=== PATIENT | female | born 1955 | race Caucasian/White ===

== ENCOUNTER 2019-10-19 10:45 | Outpatient (CLI) | payer MEDICARE, MEDICAID, SELFPAY ==
[2019-10-19 11:16] LABS: Alanine Aminotransferase 21 U/L (4-35); Alkaline Phosphatase 76 U/L (38-126); Aspartate Amino Transferase 26 U/L (14-36); Bilirubin,Total 0.3 mg/dL (0.2-1.3); Blood Urea Nitrogen 29 mg/dL (7-17); Calcium 9.2 mg/dL (8.4-10.2); Carbon Dioxide 30 mmol/L (22-30); Chloride 107 mmol/L (98-107); Cholesterol 111 mg/dL (0-200); Estimated Glomerular Filt Rate > 60; Glucose 105 mg/dL (65-105); HDL Direct 48 mg/dL; Potassium 3.8 mmol/L (3.4-5.0); Sodium 141 mmol/L (137-145); Triglycerides 94 mg/dL (<150)
[2019-10-19 11:19] LABS: Hemoglobin A1C 6.3 % (<5.7)
[2019-10-19 11:27] LABS: LDL Cholesterol Direct 40 mg/dL
[2019-10-19 11:49] LABS: Vitamin D 25 Hydroxy 60.1 ng/mL
== END 2019-10-19 10:46 | disposition home or self-care (01) ==
PROVIDERS: PCP Internal Medicine; Visit Provider Nurse Practitioner
DX: E55.9 Vitamin D deficiency, unspecified (principal); E11.51 Type 2 diabetes mellitus with diabetic peripheral angiopathy without gangrene; E78.2 Mixed hyperlipidemia
CPT/HCPCS: 36415; 80053; 80061; 82306; 83036

== ENCOUNTER 2020-03-30 13:12 | Outpatient (CLI) | payer MEDICARE, MEDICAID, SELFPAY ==
[2020-03-30 13:51] LABS: Hemoglobin A1C 5.6 % (<5.7)
[2020-03-30 13:58] LABS: Alanine Aminotransferase 16 U/L (4-35); Albumin Level 4.4 g/dL (3.5-5.1); Alkaline Phosphatase 64 U/L (38-126); Anion Gap 6 mmol/L (8-16); Aspartate Amino Transferase 24 U/L (14-36); Bilirubin,Total 0.4 mg/dL (0.2-1.3); Blood Urea Nitrogen 22 mg/dL (7-17); Calcium 9.7 mg/dL (8.4-10.2); Carbon Dioxide 28 mmol/L (22-30); Chloride 101 mmol/L (98-107); Cholesterol 134 mg/dL (0-200); Estimated Glomerular Filt Rate 56; Glucose 129 mg/dL (65-105); HDL Direct 46 mg/dL; Potassium 4.1 mmol/L (3.4-5.0); Sodium 135 mmol/L (137-145); Triglycerides 209 mg/dL (<150)
[2020-03-30 14:09] LABS: LDL Cholesterol Direct 43 mg/dL
[2020-03-30 14:41] LABS: Vitamin D 25 Hydroxy 69.7 ng/mL
== END 2020-03-30 13:13 | disposition home or self-care (01) ==
LOC: ANHLAB 13:17
PROVIDERS: PCP Internal Medicine; Visit Provider Internal Medicine
DX: E78.5 Hyperlipidemia, unspecified (principal); E11.51 Type 2 diabetes mellitus with diabetic peripheral angiopathy without gangrene; E55.9 Vitamin D deficiency, unspecified
CPT/HCPCS: 36415; 80053; 80061; 82306; 83036

== ENCOUNTER 2020-10-03 11:40 | Outpatient (CLI) | payer MEDICARE, MEDICAID, SELFPAY ==
--- NOTE | 2020-10-03 12:32 | ECG_ITS ---
Measurements Intervals [place] Rate: 97 P: [place]: 0 QRS: -19 QRSD: 94 T: 70 QT: 353 QTc: 449 Interpretive Statements ATRIAL FIBRILLATION DELAYED PRECORDIAL R/S TRANSITION NONSPECIFIC ST & T-WAVE ABNORMALITY- HIGH LATERAL LEADS BASELINE ARTIFACT- I, II, III, AVR, AVL, AVF ABNORMAL ECG Electronically Signed On 10-03-2020 13:17:03 CDT by Xavi Carter D.O.
[2020-10-03 12:34] LABS: Potassium 3.9 mmol/L (3.4-5.0)
[2020-10-03 12:37] LABS: Alanine Aminotransferase 18 U/L (4-35); Albumin Level 4.5 g/dL (3.5-5.1); Alkaline Phosphatase 105 U/L (38-126); Anion Gap 6 mmol/L (8-16); Aspartate Amino Transferase 30 U/L (14-36); Bilirubin,Total 0.3 mg/dL (0.2-1.3); Blood Urea Nitrogen 22 mg/dL (7-17); Calcium 9.3 mg/dL (8.4-10.2); Carbon Dioxide 31 mmol/L (22-30); Chloride 99 mmol/L (98-107); Cholesterol 139 mg/dL (0-200); Estimated Glomerular Filt Rate 50; Glucose 131 mg/dL (65-105); HDL Direct 68 mg/dL; Sodium 136 mmol/L (137-145); Triglycerides 226 mg/dL (<150)
[2020-10-03 12:38] LABS: Hemoglobin A1C 6.3 % (<5.7)
[2020-10-03 12:45] LABS: LDL Cholesterol Direct 36 mg/dL
[2020-10-03 12:56] LABS: Creatinine Urine 21.7 mg/dL
[2020-10-03 13:02] LABS: Microalbumin Urine Random 6.3 mg/L (0-16.7)
[2020-10-03 14:57] LABS: Vitamin D 25 Hydroxy 46.6 ng/mL
== END 2020-10-03 11:41 | disposition home or self-care (01) ==
LOC: ANHLAB 11:45
PROVIDERS: PCP Internal Medicine; Visit Provider Nurse Practitioner
DX: I49.9 Cardiac arrhythmia, unspecified (principal); E11.51 Type 2 diabetes mellitus with diabetic peripheral angiopathy without gangrene; F32.9 Major depressive disorder, single episode, unspecified; E78.2 Mixed hyperlipidemia; E55.9 Vitamin D deficiency, unspecified
CPT/HCPCS: 36415; 80053; 80061; 82043; 82306; 83036; 84443; 93005

== ENCOUNTER 2021-04-14 10:37 | Outpatient (CLI) | payer MEDICARE, MEDICAID, SELFPAY ==
[2021-04-14 11:12] LABS: Hemoglobin A1C 6.4 % (<5.7)
[2021-04-14 11:19] LABS: Alanine Aminotransferase 17 U/L (4-35); Albumin Level 4.3 g/dL (3.5-5.1); Alkaline Phosphatase 87 U/L (38-126); Anion Gap 9 mmol/L (8-16); Aspartate Amino Transferase 24 U/L (14-36); Bilirubin,Total 0.4 mg/dL (0.2-1.3); Blood Urea Nitrogen 36 mg/dL (7-17); Calcium 9.5 mg/dL (8.4-10.2); Carbon Dioxide 27 mmol/L (22-30); Chloride 104 mmol/L (98-107); Cholesterol 122 mg/dL (0-200); Estimated Glomerular Filt Rate 38; Glucose 173 mg/dL (65-110); HDL Direct 49 mg/dL; Potassium 3.7 mmol/L (3.4-5.0); Sodium 140 mmol/L (137-145); Triglycerides 260 mg/dL (<150)
[2021-04-14 11:41] LABS: LDL Cholesterol Direct < 30 mg/dL
== END 2021-04-14 10:38 | disposition home or self-care (01) ==
LOC: ANHLAB 10:43
PROVIDERS: PCP Internal Medicine; Visit Provider Nurse Practitioner
DX: E78.5 Hyperlipidemia, unspecified (principal); E11.9 Type 2 diabetes mellitus without complications
CPT/HCPCS: 36415; 80053; 80061; 83036

== ENCOUNTER 2021-08-20 16:42 | Outpatient (CLI) | payer OTHER, SELFPAY ==
[2021-08-20 17:35] LABS: Basophils Absolute Auto 0.1 K/mm3 (0.0-0.1); Basophils Percent Auto 0.7 % (0.2-1.2); Eosinophils Absolute Auto 0.2 K/mm3 (0-0.3); Hematocrit 45.7 % (37.0-47.0); Hemoglobin 15.4 g/dL (12.0-15.0); Immature Granulocyte Absolute 0.03 K/mm3 (0.00-0.031); Immature Granulocyte Percent A 0.3 % (0-0.5); Lymphocytes Absolute Auto 2.83 K/mm3 (0.9-3.2); Lymphocytes Percent Auto 26.7 % (18.3-44.2); Mean Corpuscular HGB Conc 33.7 g/dl (32-36); Mean Corpuscular Hemoglobin 34.2 pg (26-34); Mean Corpuscular Volume 101.6 fl (80-100); Mean Platelet Volume 10.4 fl (7.4-10.4); Monocytes Absolute Auto 0.7 K/mm3 (0.1-0.6); Monocytes Percent Auto 6.8 % (2.6-8.5); Neutrophils Absolute Auto 6.7 K/mm3 (1.3-6.7); Neutrophils Percent Auto 63.5 % (45.5-73.1); Platelet Count Result 192 k/mm3 (150-375); Red Cell Distribution Width 11.9 % (11.5-14.5); White Blood Count 10.6 K/mm3 (4.5-10.0)
[2021-08-20 17:51] LABS: Alanine Aminotransferase 18 U/L (4-35); Albumin Level 4.4 g/dL (3.5-5.1); Alkaline Phosphatase 75 U/L (38-126); Anion Gap 9 mmol/L (8-16); Aspartate Amino Transferase 29 U/L (14-36); Bilirubin,Total 0.3 mg/dL (0.2-1.3); Blood Urea Nitrogen 30 mg/dL (7-17); Calcium 9.8 mg/dL (8.4-10.2); Carbon Dioxide 26 mmol/L (22-30); Chloride 105 mmol/L (98-107); Estimated Glomerular Filt Rate 55; Glucose 90 mg/dL (65-110); Potassium 4.4 mmol/L (3.4-5.0); Sodium 140 mmol/L (137-145)
== END 2021-08-20 16:43 | disposition home or self-care (01) ==
PROVIDERS: PCP Internal Medicine; Visit Provider Nurse Practitioner
DX: R56.9 Unspecified convulsions (principal)
CPT/HCPCS: 36415; 80053; 85025

== ENCOUNTER 2021-08-21 13:42 | Outpatient (CLI) | payer OTHER, SELFPAY ==
--- NOTE | ~2021-08-21 | CT_ITS ---
EXAMINATION: CT brain wo con INDICATION: Seizure COMPARISON: 12/08/2018 TECHNIQUE: Standard unenhanced head CT. The dose-length product (DLP) was 529.67 mGy-cm. The mA was a djusted according to patient size. Iterative reconstruction technique was employed. FINDINGS: There is no acute intraparenchymal hemorrhage. No evidence of mass lesion. No evidence of a cute infarction. There are old occipital infarcts, left greater than right. There is mild periventric ular and subcortical hypodensity probably related to small vessel ischemic disease. There is mild pro minence of the sulci and ventricles related to cerebral atrophy. Intracranial calcified cerebral athe rosclerosis is noted. There are no extra-axial collections. There is no mass effect or midline shift. The orbits and soft tissues are unremarkable. The visualized sinuses and mastoid air cells are well aerated. IMPRESSION: 1. Areas of prior infarction without acute intracranial abnormality. 2. Age related findings. Reviewed, dictated and finalized at location B. [employer]PECTOR
== END 2021-08-21 13:43 | disposition home or self-care (01) ==
PROVIDERS: PCP Internal Medicine; Visit Provider Nurse Practitioner
DX: R56.9 Unspecified convulsions (principal); Z86.73 Personal history of transient ischemic attack (TIA), and cerebral infarction without residual deficits
CPT/HCPCS: 70450

== ENCOUNTER 2021-08-28 17:56 | Emergency (ER) | payer OTHER, SELFPAY ==
[2021-08-28] VITALS (11 sets, daily range): BP systolic 119–145; BP diastolic 56–87; PULSE 65–119; RESP 17–21; TEMP 36.9; O2SAT 96–100
--- NOTE | ~2021-08-28 | XR_ITS ---
XR chest 2V DATE: 08/28/2021 19:10 INDICATION: Cough, rhonchi. Seizure. TECHNIQUE: AP and lateral views COMPARISON: None FINDINGS: Heart size is normal. There is extensive thoracic aortic calcification and tortuosity. No h ilar or mediastinal enlargement is noted. No pulmonary infiltrate or consolidation, pleural effusion or pulmonary vascular congestion or pneumo thorax is detected. IMPRESSION: No active cardiopulmonary disease Aortic calcification and tortuosity Osteopenia Reviewed, dictated and finalized at location A.
--- NOTE | ~2021-08-28 | CT_ITS ---
EXAMINATION: CT brain wo con DATE: 08/28/2021 19:02 INDICATION: Seizure TECHNIQUE: Computed tomography (CT) of the head was performed without intravenous contrast. The mA wa s adjusted according to patient size. Iterative reconstruction technique was employed. Exam dose: 60 5.33 mGy-cm total exam DLP. COMPARISON: 08/21/2021 CT brain 12/08/2018 CT brain FINDINGS: Chronic bilateral occipital infarcts, larger on the left, not significantly changed since and . Chronic high convexity left watershed infarct, stable since 12/08/2018. Chronic cerebellar and basal ganglia lacunar infarcts. Bilateral vertebral artery, basilar artery and bilateral carotid siphon and supraclinoid internal car otid artery calcifications are noted. There is nonspecific diminished attenuation of the cerebral whi te matter, likely due to chronic small vessel ischemic changes. No intracranial mass lesion or hemorrhage, midline shift or mass effect is evident. No subdural or ep idural hematoma. No fracture or bone destruction of the cranial vault. There is mild soft tissue thickening in the posterior left maxillary sinus and anteromedial and anter olateral upper right maxillary sinus. The mastoid air cells and included paranasal sinuses are otherw ise unremarkable. No fracture or bone destruction of the cranial vault. IMPRESSION: Bilateral chronic infarcts; no acute intracranial finding or significant change since Reviewed, dictated and finalized at Location A. Reviewed, dictated and finalized at location A. IMPRESSION: Bilateral chronic infarcts; no acute intracranial finding or signi ficant change since 12/08/2018
--- NOTE | 2021-08-28 18:40 | ED.SEIZURE ---
HPI - Seizure General Chief Complaint: Seizure <MACRINA Hernandez Last Filed: 08/29/21 03:39> Stated Complaint: seizure <MACRINA Hernandez Last Filed: 08/29/21 03:39> Time Seen by Provider: 08/28/21 18:35 <MACRINA Hernandez Last Filed: 08/29/21 03:39> Source: patient and family <MACRINA Hernandez Last Filed: 08/29/21 03:39> Mode of arrival: ambulatory <MACRINA Hernandez Last Filed: 08/29/21 03:39> Limitations: no limitations <MACRINA Hernandez Last Filed: 08/29/21 03:39> History of Present Illness HPI Narrative: Patient is a 66-year-old female, with history of atrial fibrillation, DM, heart failure, CVA, hypertension, hyperlipidemia, and anxiety who presents to ED with report of seizure. Patient daughter at bedside assisted in providing information. She reports the patient was sitting in a chair around 5:30 PM today when she began to have seizure-like activity. Daughter reports the patient's arms locked up in a flexed position. She did not fall or hit her head. Daughter was unsure if she lost consciousness as she appeared to be mumbling words. Patient has a history of 3 seizures since mid June. She has seen her PCP earlier this month for this and had a outpatient CT scan of the brain performed which did not show any acute findings. She was scheduled for an outpatient EEG for Friday and an appointment to see Dr. Perales on September 29. Patient was told if she had further seizure like activity to present to the ED. Daughter denies any bowel or bladder incontinence with the episode today. Patient denies any complaints currently in the ED bed and states she feels fine. No nausea, vomiting, fever, chills, abdominal pain, back pain, fatigue, CP, SOB. She does report having a cough for the past week. Patient has a history of CVA 16 years ago. 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 <MACRINA Hernandez Last Filed: 08/29/21 03:39> Related Data Home Medications: Home Medications Medication Instructions Recorded Confirmed aspirin 325 mg tablet,delayed 325 mg PO DAILY 04/18/21 08/20/21 release famotidine 40 mg tablet 40 mg PO ONCE tablet 08/20/21 08/20/21 <Katrina Winn PA-C - Last Filed: 08/29/21 03:39> Allergies/Adverse Reactions: Allergies Allergy/AdvReac Type Severity Reaction Status Date / Time azithromycin Allergy Severe BLEEDING Verified 08/20/21 15:46 IN THE STOMACH AFTER 3 DAYS banana Allergy Mild Unknown Verified 08/20/21 15:46 fluoxetine Allergy Unknown Restlessnes Verified 08/20/21 15:46 s Penicillins Allergy Unknown Hives Verified 08/20/21 15:46 Contrast Media Allergy Intermediate Unknown Uncoded 08/20/21 15:46 Fruit Juice Allergy Unknown ALLERGY IS Uncoded 08/20/21 15:46 TO FRESH FRUIT walnuts Allergy Swelling Uncoded 08/28/21 18:09 of Lip/Tongue/Throat <Katrina Winn PA-C - Last Filed: 08/29/21 03:39> Review of Systems Review of Systems: CONSTITUTIONAL: Denies fever, chills, sweats, fatigue. EYES: Denies visual changes. ENT: Denies rhinorrhea, congestion. CARDIOVASCULAR: Denies chest pain, palpitations, or edema. RESPIRATORY: Reports cough. Denies dyspnea. GASTROINTESTINAL: Denies abdominal pain, nausea, vomiting, or diarrhea, bowel/bladder incontinence. GENITOURINARY: Denies dysuria or hematuria. MUSCULOSKELETAL: Denies back pain, joint pain, or myalgia. NEUROLOGIC: Reports seizure like activity. Denies HI, headache, numbness, or weakness. <Katrina Winn PA-C - Last Filed: 08/29/21 03:39> All systems reviewed & are unremarkable except as noted in HPI and below <Katrina Winn PA-C - Last Filed: 08/29/21 03:39> PMFSH Past Medical History Medical History: Medical History (Updated 08/30/21 @ 00:00 by Background Daemon) Anxiety and depression Atrial fibril
--- NOTE | 2021-08-28 18:50 | ECG_ITS ---
Measurements Intervals [place] Rate: 101 P: [place]: 0 QRS: -6 QRSD: 92 T: 44 QT: 364 QTc: 472 Interpretive Statements ATRIAL FIBRILLATION WITH RAPID VENTRICULAR RESPONSE MODERATE ST DEPRESSION [0.05+ mV ST DEPRESSION] COMPARED TO ECG 10/03/2020 12:52:38 ST (T WAVE) DEVIATION NOW PRESENT Electronically Signed On 08-29-2021 13:01:04 CDT by Albertina Dasilva M.D.
--- NOTE | 2021-08-28 19:01 | PC.NURSE ---
Patient to radiology for head CT.
[2021-08-28 19:06] LABS: Basophils Absolute Auto 0.1 K/mm3 (0.0-0.1); Basophils Percent Auto 0.8 % (0.2-1.2); Eosinophils Absolute Auto 0.2 K/mm3 (0-0.3); Hematocrit 40.4 % (37.0-47.0); Hemoglobin 13.6 g/dL (12.0-15.0); Immature Granulocyte Absolute 0.01 K/mm3 (0.00-0.031); Immature Granulocyte Percent A 0.1 % (0-0.5); Lymphocytes Percent Auto 31.1 % (18.3-44.2); Mean Corpuscular HGB Conc 33.7 g/dl (32-36); Mean Corpuscular Hemoglobin 33.7 pg (26-34); Mean Platelet Volume 10.5 fl (7.4-10.4); Monocytes Absolute Auto 0.6 K/mm3 (0.1-0.6); Monocytes Percent Auto 6.7 % (2.6-8.5); Neutrophils Absolute Auto 5.1 K/mm3 (1.3-6.7); Neutrophils Percent Auto 59.3 % (45.5-73.1); Platelet Count Result 172 k/mm3 (150-375); Red Blood Count 4.04 M/mm3 (4.2-5.4); White Blood Count 8.7 K/mm3 (4.5-10.0)
--- NOTE | 2021-08-28 19:09 | PC.NURSE ---
Patient report given to CRISTINA Dumont. All questions answered and care of patient transferred.
--- NOTE | 2021-08-28 19:09 | PC.NURSE ---
Assuming care of pt.
[2021-08-28 19:16] LABS: Prothrombin Time 12.7 Seconds (11.1-14.7)
[2021-08-28 19:17] LABS: Partial Thromboplastin Time 28.1 SECONDS (22.3-36.8)
[2021-08-28 19:19] LABS: Alanine Aminotransferase 14 U/L (4-35); Albumin Level 4.2 g/dL (3.5-5.1); Alkaline Phosphatase 79 U/L (38-126); Anion Gap 9 mmol/L (8-16); Aspartate Amino Transferase 30 U/L (14-36); Bilirubin,Total 0.4 mg/dL (0.2-1.3); Blood Urea Nitrogen 27 mg/dL (7-17); Calcium 9.6 mg/dL (8.4-10.2); Carbon Dioxide 26 mmol/L (22-30); Chloride 103 mmol/L (98-107); Estimated CRCL calculation 35 ml/min; Estimated Glomerular Filt Rate 50; Glucose 96 mg/dL (65-110); Potassium 3.9 mmol/L (3.4-5.0); Sodium 138 mmol/L (137-145)
[2021-08-28 19:31] LABS: Troponin I < 0.012 ng/mL (0.000-0.034)
[2021-08-28] MEDS: METOPROLOL TARTRATE 12.5 MG TABLET PO (20:16)
[2021-08-28 20:18] LABS: NT Pro B Type Natriuretic Pept 1910 pg/mL (5-100)
--- NOTE | 2021-08-28 21:03 | PC.NURSE ---
Pt requesting to sign out AMA pt not wanting to be admitted. Pt given risk of signing out AMA which are risk of elevated heart rate, additional seizures, and possible . Pt understands and repeats back to RN risk of signing out AMA. Daughter at bedside plans on staying with pt overnight and going to call PMD in am. Pt aox3.
== END 2021-08-28 21:06 | disposition left against medical advice (07) ==
PROVIDERS: Physician Assistant; Emergency Provider Emergency Medicine; PCP Internal Medicine
DX: R56.9 Unspecified convulsions (principal); I50.9 Heart failure, unspecified; I48.91 Unspecified atrial fibrillation; I11.0 Hypertensive heart disease with heart failure; E11.9 Type 2 diabetes mellitus without complications; E78.5 Hyperlipidemia, unspecified; Z86.73 Personal history of transient ischemic attack (TIA), and cerebral infarction without residual deficits; Z79.82 Long term (current) use of aspirin; F17.210 Nicotine dependence, cigarettes, uncomplicated; Z79.84 Long term (current) use of oral hypoglycemic drugs
CPT/HCPCS: 36415; 70450; 71046; 80053; 83880; 84484; 85025; 85610; 85730; 93005; 99284; A9270

== ENCOUNTER 2021-08-31 10:44 | Outpatient (CLI) | payer OTHER, SELFPAY ==
--- NOTE | 2021-09-01 13:37 | P.NEURO_ITS ---
Neurology EEG Report General Information Date of Study: 08/31/21 TEST eeg DIAGNOSIS Seizure-like activity CONDITION OF RECORDING awake drowsy and sleep EEG NUMBER [id number] CLINICAL HISTORY patient is not sure why she is having this test. She did have a stroke about 2 weeks ago that left her with partial paralysis on the right side and affected her speech as well she gives no history of any seizure-like activity EEG DESCRIPTION basic resting occipital frequency consists of low-voltage 8 to 10 hertz per 2nd alpha admixed with low-voltage 15 to 18 hertz per 2nd beta activity. During drowsiness low-voltage beta activity seen diffusely admixed with waxing and waning posterior alpha rhythm. Bilateral symmetrical sleep like activity seen. Hyperventilation not done. Photic stimulation not done. Old record is compromised by multiple muscle artifacts non paroxysmal . Nonfocal. Nonlateralizing. IMPRESSION No significant abnormalities noted this tracing is compromised by multiple mo vements and muscle artifacts. Clinical correlation recommended.
== END 2021-08-31 10:45 | disposition home or self-care (01) ==
LOC: ANHNEURO 10:46
PROVIDERS: PCP Internal Medicine; Visit Provider Nurse Practitioner
DX: R56.9 Unspecified convulsions (principal)
CPT/HCPCS: 95816

== ENCOUNTER 2021-09-12 15:41 | Emergency (ER) | payer OTHER, SELFPAY ==
[2021-09-12] VITALS (14 sets, daily range): BP systolic 67–162; BP diastolic 39–54; PULSE 59–71; RESP 14–22; TEMP 36.3; O2SAT 93–99
--- NOTE | ~2021-09-12 | XR_ITS ---
XR chest 1V DATE: 09/12/2021 16:30 INDICATION: Right-sided weakness, possible cerebrovascular accident. Recent cough. Rhonchi. TECHNIQUE: AP chest COMPARISON: 08/28/2021 2 view chest FINDINGS: Normal heart size. There is extensive thoracic aortic calcification. No hilar or mediastina l enlargement. No pulmonary infiltrate or consolidation, pleural effusion or pulmonary vascular conge stion or pneumothorax. IMPRESSION: No active cardiopulmonary disease Aortic atherosclerosis Reviewed, dictated and finalized at location A.
--- NOTE | ~2021-09-12 | CT_ITS ---
EXAMINATION: CT brain wo con EXAM DATE: 09/12/2021 16:19 INDICATION: Stroke. TECHNIQUE: Spiral CT of the head was performed without contrast. Axial, coronal and sagittal images were reviewed. The dose-length product (DLP) for this examination was 605.33 mGy-cm. The exposure w as tailored according to patient size, and iterative reconstruction (ASIR) was used as additional dos e reduction technique. Comparison is made to prior examination from 08/28/2021. FINDINGS: Again there is moderate size old left occipital lobe infarction. Small to moderate size old right occipital lobe infarction. Several other tiny cortical and cerebellar infarctions. Punctate ba amando ganglia and left caudate head lacunar infarctions. Moderate microangiopathy and cerebral atrophy. There is no obstructive hydrocephalus, brain mass, acute intracranial hemorrhage. No extra-axial col lections. IMPRESSION: 1. Chronic old infarctions. 2. Microangiopathy and cerebral atrophy. 3. No acute findings. Reviewed, dictated and finalized at location B.
--- NOTE | 2021-09-12 15:45 | ECG_ITS ---
Measurements Intervals [place] Rate: 60 P: -19 [place]: 164 QRS: 27 QRSD: 93 T: 19 QT: 422 QTc: 423 Interpretive Statements SINUS RHYTHM COMPARED TO ECG 08/28/2021 19:40:42 SINUS RHYTHM NOW PRESENT Electronically Signed On 09-19-2021 21:19:02 CDT by Albertina Dasilva M.D.
[2021-09-12 16:03] LABS: Basophils Absolute Auto 0.1 K/mm3 (0.0-0.1); Basophils Percent Auto 0.9 % (0.2-1.2); Eosinophils Absolute Auto 0.2 K/mm3 (0-0.3); Eosinophils Percent Auto 2.5 % (0-4.4); Hematocrit 42.7 % (37.0-47.0); Hemoglobin 14.9 g/dL (12.0-15.0); Immature Granulocyte Absolute 0.02 K/mm3 (0.00-0.031); Immature Granulocyte Percent A 0.2 % (0-0.5); Lymphocytes Absolute Auto 2.51 K/mm3 (0.9-3.2); Lymphocytes Percent Auto 27.7 % (18.3-44.2); Mean Corpuscular HGB Conc 34.9 g/dl (32-36); Mean Corpuscular Volume 97.5 fl (80-100); Monocytes Absolute Auto 0.6 K/mm3 (0.1-0.6); Monocytes Percent Auto 6.1 % (2.6-8.5); Neutrophils Absolute Auto 5.7 K/mm3 (1.3-6.7); Neutrophils Percent Auto 62.6 % (45.5-73.1); Platelet Count Result 204 k/mm3 (150-375); Red Blood Count 4.38 M/mm3 (4.2-5.4); Red Cell Distribution Width 11.9 % (11.5-14.5); White Blood Count 9.1 K/mm3 (4.5-10.0)
[2021-09-12 16:58] LABS: Anion Gap 6 mmol/L (8-16); Blood Urea Nitrogen 27 mg/dL (7-17); Calcium 9.6 mg/dL (8.4-10.2); Carbon Dioxide 29 mmol/L (22-30); Chloride 104 mmol/L (98-107); Estimated CRCL calculation 37 ml/min; Estimated Glomerular Filt Rate 50; Glucose 128 mg/dL (65-110); Potassium 4.4 mmol/L (3.4-5.0); Sodium 139 mmol/L (137-145)
[2021-09-12 17:09] LABS: Troponin I < 0.012 ng/mL (0.000-0.034)
--- NOTE | 2021-09-12 17:32 | ED.NEUROSD ---
HPI - Neuro Symptoms/Deficit General Chief Complaint: Neuro Symptoms/Deficit Stated Complaint: neuro symptoms Time Seen by Provider: 09/12/21 15:44 Source: patient, family and other (daughter) Mode of arrival: EMS Limitations: no limitations History of Present Illness HPI Narrative: 66-year-old with a history of CVA, diabetes, A. fib was brought in by family in ambulance with complaints of facial droop on and off for past 1 month. Daughter who is at the bedside states that her eyes rolled back followed by facial droop last for few minutes and she becomes normal. Patient has been evaluated by Dr. Diaz sharma possible seizure she states that EEG was normal she is scheduled for echo on September 24. She presently denies any headache, chest pain, shortness of breath. Onset (ago): week(s) (4) Timing confirmed by: family member Location: right face History of same: Yes Severity: moderate Relieving factors: none Exacerbating factors: none Associated symptoms: denies other symptoms Related Data Home Medications Medication Instructions Recorded Confirmed aspirin 325 mg tablet,delayed 325 mg PO DAILY 04/18/21 08/20/21 release famotidine 40 mg tablet 40 mg PO ONCE tablet 08/20/21 08/20/21 Allergies Allergy/AdvReac Type Severity Reaction Status Date / Time azithromycin Allergy Severe BLEEDING Verified 08/20/21 15:46 IN THE STOMACH AFTER 3 DAYS banana Allergy Mild Unknown Verified 08/20/21 15:46 fluoxetine Allergy Unknown Restlessnes Verified 08/20/21 15:46 s Penicillins Allergy Unknown Hives Verified 08/20/21 15:46 Contrast Media Allergy Intermediate Unknown Uncoded 08/20/21 15:46 Fruit Juice Allergy Unknown ALLERGY IS Uncoded 08/20/21 15:46 TO FRESH FRUIT walnuts Allergy Swelling Uncoded 08/28/21 18:09 of Lip/Tongue/Throat Review of Systems Review of Systems: All systems reviewed & are unremarkable except as noted in HPI and below Constitutional: Constitutional: Reports no additional constitutional complaints Eyes: Eyes: Reports no additional eye complaints ENT: Reports system reviewed and no additional complaints, except as documented Cardiovascular: Cardiovascular: Reports no additional cardiovascular complaints Respiratory: Respiratory: Reports no additional respiratory complaints Gastrointestinal: Gastrointestinal: Reports no additional gastrointestinal complaints Musculoskeletal: Musculoskeletal: Reports no additional musculoskeletal complaints Integumentary/Breasts: Skin/Breast: Reports system reviewed and no additional complaints, except as docu Neurologic: Reports as per [facility] Past Medical History Medical History Anxiety and depression Atrial fibrillation Cardiac catheterization as the cause of abnormal reaction of the patient, or of later complication, without mention of misadventure at the time of the procedure (~2011) CVA (cerebral vascular accident) Diabetes mellitus Frequent falls Hyperlipidemia Hypertension Surgical History Surgical History H/O section (~1991) H/O section (~1980) H/O section (~1973) H/O: hysterectomy (~1996) S/P colonoscopic polypectomy (~2007) Family History Family History Mother Hypertension Carcinoma of colon Family history of diabetes mellitus in first degree relative Patient's mother is Acute myocardial infarction Diabetes mellitus Other Atrial fibrillation Family history of bipolar disorder Social History Social History Smoking packs per day: 1 Smoking cigarettes per day: 20.0 Years smoked: 45 Smoking pack-years: 45.00 Smoking status: Current every day smoker Second hand tobacco smoke exposure: Yes Alcohol intake: never Substance use: never
== END 2021-09-12 18:15 | disposition home or self-care (01) ==
PROVIDERS: Emergency Provider Family Medicine; PCP Internal Medicine
DX: R53.1 Weakness (principal); F41.9 Anxiety disorder, unspecified; F32.9 Major depressive disorder, single episode, unspecified; I48.91 Unspecified atrial fibrillation; E11.9 Type 2 diabetes mellitus without complications; I10 Essential (primary) hypertension; E78.5 Hyperlipidemia, unspecified
CPT/HCPCS: 36415; 70450; 71045; 80048; 84484; 85025; 93005; 99284

== ENCOUNTER 2021-09-15 12:52 | Emergency (ER) | payer MEDICARE, MEDICAID, SELFPAY ==
[2021-09-15] VITALS (20 sets, daily range): BP systolic 130–159; BP diastolic 48–85; PULSE 57–105; RESP 11–25; TEMP 36.4; O2SAT 90–99
--- NOTE | ~2021-09-15 | XR_ITS ---
EXAMINATION: XR chest 2V DATE: 09/15/2021 13:28 INDICATION: Heart palpitations and cough TECHNIQUE: AP and lateral views of the chest are obtained. COMPARISON: 09/12/2021 FINDINGS: The lungs are free of acute opacities. There is no pleural effusion or pneumothorax. The ca rdiomediastinal silhouette is normal. There is moderate thoracic spondylosis. IMPRESSION: 1. No acute cardiopulmonary abnormality. Reviewed, dictated and finalized at location A.
--- NOTE | 2021-09-15 13:03 | ECG_ITS ---
Measurements Intervals [place] Rate: 65 P: 68 [place]: 156 QRS: 16 QRSD: 97 T: 65 QT: 428 QTc: 447 Interpretive Statements SINUS RHYTHM BASELINE ARTIFACT NONSPECIFIC ST ABNORMALITY BORDERLINE ECG COMPARED TO ECG 09/12/2021 15:45:49 NO SIGNIFICANT CHANGE Electronically Signed On 09-15-2021 17:05:40 CDT by Nolan Dias M.D.
--- NOTE | 2021-09-15 13:11 | ED.ARRPALP ---
HPI - Arrhythmia/Palpitations General Chief Complaint: Arrhythmia/Palpitations Stated Complaint: afib Time Seen by Provider: 09/15/21 12:57 Source: patient and family Mode of arrival: ambulatory Limitations: no limitations History of Present Illness HPI narrative: 66-year-old female presents emergency room accompanied by her daughter. She comes in secondary to some cardiac arrhythmias. She has had some paroxysmal atrial fibrillation. One time she was placed up on Xarelto however she had nosebleeds and she quit taking it. She was advised to go see an ENT and get cauterization to the bleeding and continue with the Xarelto. However she is not done that. He has had some intermittent episodes but lately she been having them more frequently. She is here with her daughter who gives me most of the history. She had an episode today that was short-lived. She has had these several times and sometimes they called 911 and by the time they get there she come back into a normal rhythm which is what happened again today. However she describes that her mom feels these episodes and just does not feel good at all almost like she can have a seizure which is not typical. She does have a loan adviser and has a follow-up appointment. She also has a neurologist that she sees. She denies any chest pain or shortness of breath. She was recently started on amiodarone as well. Related Data Home Medications Medication Instructions Recorded Confirmed aspirin 325 mg tablet,delayed 325 mg PO DAILY 04/18/21 08/20/21 release famotidine 40 mg tablet 40 mg PO ONCE tablet 08/20/21 08/20/21 Allergies Allergy/AdvReac Type Severity Reaction Status Date / Time azithromycin Allergy Severe BLEEDING Verified 08/20/21 15:46 IN THE STOMACH AFTER 3 DAYS banana Allergy Mild Unknown Verified 08/20/21 15:46 fluoxetine Allergy Unknown Restlessnes Verified 08/20/21 15:46 s Penicillins Allergy Unknown Hives Verified 08/20/21 15:46 Contrast Media Allergy Intermediate Unknown Uncoded 08/20/21 15:46 Fruit Juice Allergy Unknown ALLERGY IS Uncoded 08/20/21 15:46 TO FRESH FRUIT walnuts Allergy Swelling Uncoded 08/28/21 18:09 of Lip/Tongue/Throat Review of Systems Review of Systems: CONSTITUTIONAL: Denies fever, chills, or sweats. EYES: Denies visual changes, redness, or discharge. ENT: Denies rhinorrhea, congestion, sore throat, or otalgia. CARDIOVASCULAR: Denies chest pain or edema. Having palpitations and arrhythmia as noted in HPI RESPIRATORY: Denies cough or dyspnea. GASTROINTESTINAL: Denies abdominal pain, nausea, vomiting, or diarrhea. GENITOURINARY: Denies dysuria or hematuria. SKIN: Denies rash or itching. MUSCULOSKELETAL: Denies back pain, joint pain, or myalgia. NEUROLOGIC: Denies headache. Right-sided weakness from a prior stroke PSYCHIATRIC: Denies anxiety or depression. [facility] Past Medical History Medical History Anxiety and depression Atrial fibrillation Cardiac catheterization as the cause of abnormal reaction of the patient, or of later complication, without mention of misadventure at the time of the procedure (~2011) CVA (cerebral vascular accident) Diabetes mellitus Frequent falls Hyperlipidemia Hypertension Surgical History Surgical History H/O section (~1991) H/O section (~1980) H/O section (~1973) H/O: hysterectomy (~1996) S/P colonoscopic polypectomy (~2007) Family History Family History Mother Hypertension Carcinoma of colon Family history of diabetes mellitus in first degree relative Patient's mother is Acute myocardial infarction Diabetes mellitus Other Atrial fibrillation Family history of bipolar disorder Social History Social History (Reviewed 09/15/21 @ 13:14 by Meet Burdick
[2021-09-15 13:21] LABS: Basophils Absolute Auto 0.1 K/mm3 (0.0-0.1); Eosinophils Absolute Auto 0.2 K/mm3 (0-0.3); Eosinophils Percent Auto 1.4 % (0-4.4); Hemoglobin 15.4 g/dL (12.0-15.0); Immature Granulocyte Absolute 0.04 K/mm3 (0.00-0.031); Immature Granulocyte Percent A 0.4 % (0-0.5); Lymphocytes Absolute Auto 1.24 K/mm3 (0.9-3.2); Lymphocytes Percent Auto 11.2 % (18.3-44.2); Mean Corpuscular HGB Conc 34.2 g/dl (32-36); Mean Corpuscular Hemoglobin 33.8 pg (26-34); Mean Corpuscular Volume 98.9 fl (80-100); Monocytes Absolute Auto 0.5 K/mm3 (0.1-0.6); Monocytes Percent Auto 4.7 % (2.6-8.5); Neutrophils Percent Auto 81.3 % (45.5-73.1); Platelet Count Result 195 k/mm3 (150-375); Red Blood Count 4.55 M/mm3 (4.2-5.4); Red Cell Distribution Width 12.1 % (11.5-14.5); White Blood Count 11.1 K/mm3 (4.5-10.0)
[2021-09-15 13:31] LABS: Prothrombin Time 12.4 Seconds (11.1-14.7)
[2021-09-15 13:32] LABS: Partial Thromboplastin Time 23.3 SECONDS (22.3-36.8)
[2021-09-15 13:33] LABS: Alanine Aminotransferase 16 U/L (4-35); Albumin Level 4.4 g/dL (3.5-5.1); Alkaline Phosphatase 73 U/L (38-126); Anion Gap 7 mmol/L (8-16); Aspartate Amino Transferase 29 U/L (14-36); Bilirubin,Total 0.3 mg/dL (0.2-1.3); Blood Urea Nitrogen 30 mg/dL (7-17); Calcium 9.6 mg/dL (8.4-10.2); Carbon Dioxide 28 mmol/L (22-30); Chloride 103 mmol/L (98-107); Estimated CRCL calculation 31 ml/min; Estimated Glomerular Filt Rate 45; Glucose 264 mg/dL (65-110); Lipase 57 U/L (23-300); Potassium 3.8 mmol/L (3.4-5.0); Sodium 138 mmol/L (137-145)
[2021-09-15 13:45] LABS: Troponin I < 0.012 ng/mL (0.000-0.034)
== END 2021-09-15 16:12 | disposition home or self-care (01) ==
PROVIDERS: Emergency Provider Emergency Medicine; PCP Internal Medicine
DX: I48.0 Paroxysmal atrial fibrillation (principal); E11.9 Type 2 diabetes mellitus without complications; E78.5 Hyperlipidemia, unspecified; I10 Essential (primary) hypertension; I69.351 Hemiplegia and hemiparesis following cerebral infarction affecting right dominant side; F17.210 Nicotine dependence, cigarettes, uncomplicated; Z79.82 Long term (current) use of aspirin; Z79.84 Long term (current) use of oral hypoglycemic drugs; Z79.4 Long term (current) use of insulin; R94.31 Abnormal electrocardiogram [ECG] [EKG]; T45.516A Underdosing of anticoagulants, initial encounter; Z91.128 Patient's intentional underdosing of medication regimen for other reason
CPT/HCPCS: 36415; 71046; 80053; 83690; 84484; 85025; 85610; 85730; 93005; 99284

== ENCOUNTER 2021-09-24 09:41 | Outpatient (CLI) | payer MEDICARE, MEDICAID, SELFPAY ==
--- NOTE | 2021-09-24 09:56 | ECHO_ITS ---
Patient Info Name: Yari Hebert Age: 66 years : 1955 Gender: Female Ht: 61 in Wt: 130 lbs BSA: 1.60 m2 HR: 60 bpm BP: 137 / 57 mmHg Technical Quality: Fair Exam Date: 09/24/2021 10:05 AM Exam Location: [facility] Patient Status: Outpatient Admit Date: 09/24/2021 Staff Ordering Physician: Xavi Carter DO Supervisor Accounts Receivable: Karoline Dao RDCS Attending Provider: Xavi Carter DO Referring Physician: Raul MEDINA; Exam Type: CA echo doppler color flow Study Info Indications I48.91 - UNSPECIFIED ATRIAL FIBRILLATION Complete two-dimensional, color flow and Doppler transthoracic echocardiogram is performed. Summary 1. Complete two-dimensional, color flow and Doppler transthoracic echocardiogram is performed. 2. Left ventricular chamber dimension is normal. 3. Left ventricular systolic function is normal, estimated at 60-65%. 4. The left ventricular diastolic function is grade I diastolic dysfunction. 5. E/e' 14 is mildly elevated. 6. Left atrial chamber dimension is mildly enlarged. 7. There is moderate aortic valve sclerosis. 8. There is mild to moderate aortic valve regurgitation. 9. The mitral valve has moderately calcified annulus. 10. There is trace tricuspid valve regurgitation. 11. No pulmonary hypertension, estimated pulmonary arterial systolic pressure is 23 mmHg. Left Ventricle E/e' 14 is mildly elevated. Left ventricular chamber dimension is normal. Left ventricular systolic function is normal, estimated at 60-65%. The left ventricular diastolic function is grade I diastolic dysfunction. Right Ventricle Right ventricular systolic function is normal and with normal TAPSE 2.4 cm. Right ventricular chamber dimension is normal. Left Atria Left atrial chamber dimension is mildly enlarged. Right Atria Right atrial chamber dimension is normal. Aortic Valve The aortic valve is not well visualized. Cannot determine number of aortic valve leaflets. There is moderate aortic valve sclerosis. There is no aortic valve stenosis. There is mild to moderate aortic valve regurgitation. Pulmonic Valve There is no pulmonic regurgitation. Mitral Valve The mitral valve has moderately calcified annulus. There is no mitral valve stenosis. There is no mitral valve regurgitation. Tricuspid Valve There is trace tricuspid valve regurgitation. No pulmonary hypertension, estimated pulmonary arterial systolic pressure is 23 mmHg. Pericardium/Pleural There is no pericardial effusion. Inferior Vena Cava Normal inferior vena cava with >50% collapse upon inspiration consistent with normal right atrial pressure, 5 mmHg. Aorta The aortic root size at the sinus of Valsalva is normal. Left Ventricular Outflow Tract Name Value Normal LVOT 2D LVOT Diameter 1.9 cm LVOT Doppler LVOT Peak Gradient 5 mmHg LVOT Mean Gradient 3 mmHg LVOT VTI 31 cm LVOT VTI/AV VTI Ratio 0.9 LVOT Stroke Volume 89 ml LVOT CO 5.0 l
== END 2021-09-24 09:42 | disposition home or self-care (01) ==
PROVIDERS: PCP Internal Medicine; Visit Provider Internal Medicine Cardiovascular Disease
DX: I48.91 Unspecified atrial fibrillation (principal); I08.2 Rheumatic disorders of both aortic and tricuspid valves
CPT/HCPCS: 93306

== ENCOUNTER 2021-12-18 09:29 | Emergency (ER) | payer MEDICARE, MEDICAID, SELFPAY ==
--- NOTE | ~2021-12-18 | XR_ITS ---
EXAMINATION: XR chest 1V INDICATION: Chest pain TECHNIQUE: Frontal view of the chest is obtained. COMPARISON: 09/15/2021 FINDINGS: There are minimal airspace opacities at the left costophrenic angle. No pleural effusion or pneumothorax. The cardiomediastinal silhouette is normal. IMPRESSION: 1. Left basilar airspace opacity, consistent with atelectasis versus pneumonia. Reviewed, dictated and finalized at location B.
--- NOTE | ~2021-12-18 | CT_ITS ---
EXAMINATION: CT brain wo con INDICATION: Head injury COMPARISON: 09/12/2021 TECHNIQUE: Standard unenhanced head CT. The dose-length product (DLP) was 605.33 mGy-cm. The mA was a djusted according to patient size. Iterative reconstruction technique was employed. FINDINGS: There is no acute intraparenchymal hemorrhage. No evidence of mass lesion. No evidence of a cute infarction. There are old infarcts in the bilateral occipital lobes as well as a lacunar infarct s of the basal ganglia and left caudate. There is mild periventricular and subcortical hypodensity pr obably related to small vessel ischemic disease. There is mild prominence of the sulci and ventricles related to cerebral atrophy. Intracranial calcified cerebral atherosclerosis is noted. There are no extra-axial collections. There is no mass effect or midline shift. The orbits and soft tissues are un remarkable. The visualized sinuses and mastoid air cells are well aerated. IMPRESSION: 1. Areas of prior infarction without acute intracranial abnormality. 2. Age related findings. Reviewed, dictated and finalized at location B.
--- NOTE | ~2021-12-18 | CT_ITS ---
EXAMINATION: CT cervical spine wo con DATE: 12/18/2021 10:32 INDICATION: Head injury TECHNIQUE: Computed tomography (CT) of the cervical spine was performed without intravenous contrast. The dose-length product (DLP) was 253.49 mGy-cm. Automated exposure control and iterative reconstruc tion technique were employed. COMPARISON: 12/08/2018 FINDINGS: There are 3 mm of stable anterolisthesis of C3 on C4. There is severe loss of intervertebra l disc space height at C4-5 through C6-7. Mild loss of intervertebral disc space height is noted at C 3-4 and T1-T2. There is no fracture. The odontoid is intact. Degenerative osteophytes project from th e anterior endplates of multiple vertebral bodies. There is moderate to severe multilevel facet and u ncovertebral joint osteoarthritis. IMPRESSION: 1. Severe cervical spondylosis without acute findings or significant interval change. Reviewed, dictated and finalized at location B. IMPRESSION: 1. Severe cervical spondylosis without acute findings or significant interval c shelli.
--- NOTE | ~2021-12-18 | XR_ITS ---
EXAMINATION: XR pelvis 1-2V INDICATION: Pain after fall TECHNIQUE: AP view the pelvis is obtained. COMPARISON: None available FINDINGS: Bone alignment is normal. There is no fracture. There is mild osteoarthritis of the hips. P hleboliths are noted in the pelvis. There is calcified atherosclerosis. IMPRESSION: 1. No acute osseous abnormality. Reviewed, dictated and finalized at location B.
[2021-12-18 09:37] VITALS: BP 121/36; PULSE 60; RESP 20; TEMP 36.4; O2SAT 99
--- NOTE | 2021-12-18 11:33 | PC.NURSE ---
to txmt room prior to this time; MD at bedside assessing pt., unable to change pt. into gown; bed alarm place, triangle on door, daughter at bedside.
[2021-12-18 11:55] LABS: Basophils Absolute Auto 0.1 K/mm3 (0.0-0.1); Basophils Percent Auto 0.8 % (0.2-1.2); Eosinophils Absolute Auto 0.1 K/mm3 (0-0.3); Eosinophils Percent Auto 0.8 % (0-4.4); Hematocrit 39.4 % (37.0-47.0); Hemoglobin 13.1 g/dL (12.0-15.0); Immature Granulocyte Absolute 0.03 K/mm3 (0.00-0.031); Immature Granulocyte Percent A 0.3 % (0-0.5); Lymphocytes Absolute Auto 1.18 K/mm3 (0.9-3.2); Lymphocytes Percent Auto 11.3 % (18.3-44.2); Mean Corpuscular HGB Conc 33.2 g/dl (32-36); Mean Corpuscular Hemoglobin 33.7 pg (26-34); Mean Corpuscular Volume 101.3 fl (80-100); Mean Platelet Volume 10.2 fl (7.4-10.4); Monocytes Absolute Auto 0.5 K/mm3 (0.1-0.6); Monocytes Percent Auto 5.2 % (2.6-8.5); Neutrophils Absolute Auto 8.5 K/mm3 (1.3-6.7); Neutrophils Percent Auto 81.6 % (45.5-73.1); Platelet Count Result 151 k/mm3 (150-375); Red Blood Count 3.89 M/mm3 (4.2-5.4); Red Cell Distribution Width 12.5 % (11.5-14.5); White Blood Count 10.4 K/mm3 (4.5-10.0)
[2021-12-18 12:04] LABS: Anion Gap 6 mmol/L (8-16); Blood Urea Nitrogen 39 mg/dL (7-17); Calcium 8.9 mg/dL (8.4-10.2); Carbon Dioxide 27 mmol/L (22-30); Chloride 107 mmol/L (98-107); Estimated CRCL calculation 29 ml/min; Estimated Glomerular Filt Rate 41; Glucose 133 mg/dL (65-110); Potassium 4.1 mmol/L (3.4-5.0); Sodium 140 mmol/L (137-145)
--- NOTE | 2021-12-18 13:20 | ED.HEATRA ---
HPI - Head Injury General Chief complaint: Head Injury Stated complaint: fall Time Seen by Provider: 12/18/21 11:25 History of Present Illness HPI Narrative: 66-year-old female presenting with fall, per daughter at bedside she does fall quite frequently at home,-year-old female presents here with 3 days she had a history of a stroke with right-sided weakness and uses a walker, and as a result is often off balance. She does have home health care 6 hours a day, she denies any syncope, chest pain or difficulty breathing, fevers or chills, she did hit her head and there was bleeding from her scalp, also some bleeding in her right first and second toe. No loss of consciousness. Is on aspirin. Related Data Home Medications Medication Instructions Recorded Confirmed aspirin 325 mg tablet,delayed 325 mg PO DAILY 04/18/21 11/26/21 release famotidine 40 mg tablet (Pepcid) 40 mg PO ONCE 08/20/21 11/26/21 Allergies Allergy/AdvReac Type Severity Reaction Status Date / Time azithromycin Allergy Severe BLEEDING Verified 11/26/21 15:43 IN THE STOMACH AFTER 3 DAYS banana Allergy Mild Unknown Verified 11/26/21 15:43 fluoxetine Allergy Unknown Restlessnes Verified 11/26/21 15:43 s Penicillins Allergy Unknown Hives Verified 11/26/21 15:43 Contrast Media Allergy Intermediate Unknown Uncoded 11/26/21 15:43 Fruit Juice Allergy Unknown ALLERGY IS Uncoded 11/26/21 15:43 TO FRESH FRUIT walnuts Allergy Swelling Uncoded 11/26/21 15:43 of Lip/Tongue/Throat Review of Systems Review of Systems: CONST: No fever. HEENT: Head trauma C/V: No chest pain RESP: No cough GI: No nausea/vomiting : No dysuria. M/S: Right big toe pain SKIN: Bleeding from scalp, toe NEURO: [No new focal numbness or weakness] PSYCH: [No depression] PMFSH Past Medical History Medical History Anxiety and depression Atrial fibrillation Cardiac catheterization as the cause of abnormal reaction of the patient, or of later complication, without mention of misadventure at the time of the procedure (~2011) CVA (cerebral vascular accident) Diabetes mellitus Frequent falls Hyperlipidemia Hypertension Surgical History Surgical History H/O section (~1991) H/O section (~1980) H/O section (~1973) H/O: hysterectomy (~1996) S/P colonoscopic polypectomy (~2007) Family History Family History Mother Hypertension Carcinoma of colon Family history of diabetes mellitus in first degree relative Patient's mother is Acute myocardial infarction Diabetes mellitus Other Atrial fibrillation Family history of bipolar disorder Social History Social History Smoking packs per day: 1 Smoking cigarettes per day: 20.0 Years smoked: 45 Smoking pack-years: 45.00 Smoking status: Current every day smoker Second hand tobacco smoke exposure: Yes Alcohol intake: never Substance use: never Substance use type: does not use Additional occupation/education comments: disabled Gender identity (if verbalized by the patient): Female Sexual Orientation (if Verbalized by the Patient): Straight or Heterosexual Exam Narrative: EXAMINATION OF ORGAN SYSTEMS/BODY AREAS: Constitutional: Vital signs per nursing GENERAL:[No acute distress, non-toxic appearing.] HEAD: 3 cm laceration to right scalp, bleeding controlled EYES: EOMI, conjunctiva normal ENT: Hearing grossly intact LUNGS: Nonlabored breathing. HEART: [Regular rate and rhythm] ABD: [Soft], [nontender to palpation] EXT: Right-sided contractures of SKIN: Laceration to scalp, abrasions to right great toe with controlled bleeding NEURO: [Alert. Right-sided weakness.] PSYCH: Normal affect Course Vital Signs Vital signs: Vi
[2021-12-18 13:41] VITALS: BP 128/79; PULSE 62; RESP 18; O2SAT 100
== END 2021-12-18 13:44 | disposition home or self-care (01) ==
PROVIDERS: Emergency Provider Emergency Medicine; PCP Internal Medicine
DX: S01.01XA Laceration without foreign body of scalp, initial encounter (principal); S90.811A Abrasion, right foot, initial encounter; F17.210 Nicotine dependence, cigarettes, uncomplicated; F41.9 Anxiety disorder, unspecified; F32.9 Major depressive disorder, single episode, unspecified; I48.91 Unspecified atrial fibrillation; E11.9 Type 2 diabetes mellitus without complications; I10 Essential (primary) hypertension; E78.5 Hyperlipidemia, unspecified; I69.351 Hemiplegia and hemiparesis following cerebral infarction affecting right dominant side; W01.0XXA Fall on same level from slipping, tripping and stumbling without subsequent striking against object, initial encounter; Z91.81 History of falling
CPT/HCPCS: 12002; 36415; 70450; 71045; 72125; 72170; 80048; 85025; 99284; A9270

== ENCOUNTER 2021-12-25 14:32 | Outpatient (RCR) | payer MEDICARE, MEDICAID, SELFPAY ==
--- NOTE | 2021-12-25 16:48 | PCOTNOTE ---
SEATING EVALUATION NOTIFICATION This is to notify provider that Yari Hebert participated in a power mobility device evaluation today. Recommendations were made specific to patient's needs. Seating Assessment documentation has been completed for detailed information on required equipment. The mobility device provider for this case is Ely Hess. Please note that no further care plan will be developed on this account. Thank you for referring this patient to [facility]. Please review, sign, date and return this discharge summary YAO. I have been updated about the patient's current status and I agree with discharge from the above service at this time. Referring Physician Date Referring Physician: Dr. Apolinar Frost
== END 2021-12-26 10:48 | disposition home or self-care (01) ==
LOC: ANHOT 14:32
PROVIDERS: PCP Internal Medicine; Visit Provider Internal Medicine
DX: G81.90 Hemiplegia, unspecified affecting unspecified side (principal); R56.9 Unspecified convulsions; R29.6 Repeated falls
CPT/HCPCS: 97167